=== PATIENT | female | born 1985 | race Caucasian/White ===

== ENCOUNTER → 2018-03-23 08:11 | Outpatient (CLI) | payer OTHER, SELFPAY | PROVIDERS: Family Provider Family Medicine; PCP Family Medicine; Visit Provider Nurse Practitioner Adult Health | DX: R13.10 Dysphagia, unspecified (principal) | CPT/HCPCS: 74220 ==

== ENCOUNTER 2024-08-02 18:22 | Emergency (ER) | payer OTHER, SELFPAY ==
[2024-08-02 18:23] VITALS: BP 142/87; PULSE 72; RESP 16; TEMP 37; O2SAT 100; BMI 32.9
[2024-08-02 20:33] VITALS: BP 93/72; PULSE 85; RESP 16; O2SAT 97
[2024-08-02 20:36] LABS: Absolute Lymphocyte Count 2.38 X10^3/uL (0.83-4.51); Absolute Neutrophil Count 13.6 X10^3/uL (2.0-7.7); Basophil# 0.03 X10^3/uL; Basophil% 0.2 % (0-1); Eosinophil# 0.16 X10^3/uL; Eosinophils% 0.9 % (0-5); Hematocrit 41.3 % (37-47); Lymphocyte # 2.38 X10^3/ul (0.83-4.51); Mean Corp Hgb Conc 33.9 g/dL (32-36); Mean Corpuscular Hgb 30.4 pg (27.0-32.0); Mean Corpuscular Volume 89.8 fL (81-99); Mean Platelet Vol. 11.4 fl (6.2-12.0); Monocyte# 0.69 X10^3/uL; Monocyte% 4.1 % (0-10); NRBC Flagged by Analyzer 0 % (0-5); Neutrophil # 13.63 X10^3/uL (2.7-7.7); Neutrophil % 80.4 % (47-70); Platelet Count 270 K/mm3 (150-450); RBC Distribution Width CV 12.4 % (11.6-14.6); RBC Distribution Width SD 40.9 fl (35.1-43.9)
[2024-08-02 20:46] LABS: Internal QC Validated? YES +Cl - CLEAR BKGD; Pregnancy, Serum, hCG Quali. NEGATIVE Negative
--- NOTE | 2024-08-02 21:03 | US_ITS ---
INDICATION: RUQ pain, nausea EXAMINATION: Ultrasound US Abdomen RUQ (limited) TECHNIQUE: River scale and color doppler imaging was performed of the right upper quadrant. COMPARISON: Prior study dated: 03/05/2008 FINDINGS: LIVER: The liver is normal in size, shape, and echogenicity. No focal hepatic lesion. No intrahepatic biliary ductal dilatation. There is no free fluid. GALLBLADDER AND BILIARY TREE: Normally distended gallbladder. No shadowing gallstone, pericholecystic fluid or gallbladder wall thickening. Small gallbladder wall polyp is seen measuring up to 0.4 cm. No specific follow-up recommended. The proximal common bile duct measures 0.4 cm, which is within normal limits for the patient''s age. Songraphic Brooks''s sign: Negative. PANCREAS: The pancreatic head is unremarkable. The body and tail are obscured by gas. RIGHT KIDNEY: The right kidney measures 10.4 cm. No hydronephrosis or nephrolithiasis. No renal mass. US/Gallbladder IMPRESSION: No acute sonographic abnormality is demonstrated in the right upper quadrant. Electronically Signed: Valentín Cramer MD at 22:58 EST Reading Location ID and State: [facility] Tel , Service support ,
--- NOTE | 2024-08-02 21:04 | ED.VIS.GI ---
HPI HPI - GI History of Present Illness Chief Complaint: Abd Pain Informant: patient and spouse/S.O. Narrative Narrative: Patient has been having 2-3 days of episodes of colicky right upper quadrant abdominal pain with nausea no vomiting. She had 1 bout of nonbloody diarrhea today no melena. No fevers or chills. She states the episodes of occurred within an hour or 2 of meals each time, the first day was Andrea Haji. She states he has a history of a polyp in her gallbladder that was found last year on an ultrasound, other than a hysterectomy and she has not had no other abdominal surgeries in the past. She has a history currently of bladder cancer that she is getting BCG for, she is on a break of it right now. She denies any acute urinary symptoms. When she had the colicky right upper quadrant pain it is not radiating into her back or shoulder or anywhere else. [facility] Medical History Gallbladder polyp Bladder cancer Home Medications ?Medication ?Instructions ?Recorded ?Last Taken ?Type atorvastatin 20 mg tablet 20 mg PO QHS 10/30/15 Unknown History cholecalciferol (vitamin D3) 25 1,000 unit PO DAILY 10/30/15 Unknown History mcg (1,000 unit) tablet (Vitamin D3) desogestrel 0.15 mg-ethinyl 1 ea PO DAILY 10/30/15 Unknown History estradiol 0.03 mg tablet (Juleber) pediatric multivit no.43 with iron 18 mg PO DAILY 10/30/15 Unknown History fumarate 18 mg iron chewable tablet (Flintstones Complete (iron)) naproxen 250 mg tablet 250 - 500 mg (1 - 2 x 250 mg) PO 11/03/15 Unknown Rx Q8H PRN PRN MILD PAIN ##30 oxycodone-acetaminophen 5 mg-325 2 tab PO Q4H PRN PRN 11/03/15 Unknown Rx mg tablet Moderate-Severe pain ##30 promethazine 25 mg tablet 12.5 mg (1/2 x 25 mg) PO Q6H PRN 11/03/15 Unknown Rx PRN Nausea ##30 dicyclomine 10 mg capsule 20 mg (2 x 10 mg) PO Q6H PRN PRN 08/03/24 Unknown Rx abdominal discomfort #20 CAPSULES ondansetron 8 mg disintegrating 8 mg PO Q8H PRN nausea and 08/03/24 Unknown Rx tablet vomiting #12 tabs pantoprazole 40 mg tablet,delayed 40 mg PO DAILY #14 tabs 08/03/24 Unknown Rx release Allergy/AdvReac Type Severity Reaction Status Date / Time cefac[facility] ([facility] AdvReac Upset Verified 08/02/24 18:23 Stomach Surgical History History of partial hysterectomy Social History Smoking Status: Never smoker ROS ROS ED Constitutional Constitutional ED: Denies chills or fever(s) Eyes Eyes: Denies change in vision or diplopia ENT ENT ED: Denies rhinorrhea or sore throat Cardiovascular Cardiovascular: Denies chest pain or palpitations Respiratory/Chest Respiratory/Chest: Denies cough or dyspnea Gastrointestinal Gastrointestinal: Reports abdominal pain, diarrhea and nausea; Denies hematochezia, melena or vomiting Genitourinary Genitourinary ED: Denies dysuria or hematuria Musculoskeletal Musculoskeletal: Denies back pain or neck pain Integumentary Denies abscess or rash Neurologic Neurologic: Denies headache(s), paresthesias or weakness Psychiatric Psychiatric: Denies anxiety or suicidal thoughts EXAM Physical Exam Const Vital Signs: 08/02/24 18:23 08/02/24 20:33 08/02/24 21:51 Temperature 98.6 F Temperature Source Temporal Pulse Rate 72 85 71 Respiratory Rate 16 16 14 Blood Pressure 142/87 H 93/72 90/53 L Blood Pressure Mean 105 79 65 Pulse Ox 100 97 96 Oxygen Delivery Method Room Air Room Air Room Air 08/02/24 23:00 Temperature Temperature Source Pulse Rate 72 Respiratory Rate 14 Blood Pressure 93/53 L Blood Pressure Mean 66 Pulse Ox 98 Oxygen Delivery Method Room Air Positive well nourished and well developed General Appearance ED: well developed and NAD HEENT Reports moist mucous membranes normocephalic and atraumatic Eyes PERRL and EOMs intact bilaterally Neck full ROM and supple Resp normal respiratory effort and clear to auscultation bilaterally Cardio regular rate, regular rhythm and no murmurs GI non-distended GI Narrative: Tender right upper quadrant, negative Brooks. Otherwise benign abdomen. Auscultation: normoactive bowel sounds Palpation: soft Back/Spine no CVA tenderness General Back: other FROM Extremity normal to inspection General Extremety ED: Negative for edema, pulses abnormal or tenderness General Extremity: Negative for edema or pulses abnormal Neuro oriented x3, CN's II-XII intact bilaterally and no sensory deficits noted Sensorium / Orientation: awake and alert Motor Exam: strength 5/5 throughout Skin no rashes or lesions noted and no wounds MDM MDM MDM Narrative Medical decision making narrative: Her symptoms are in the right place and of the right timing (an hour or so after meals) and context of potentially be biliary colic. Therefore labs initially obtained, nursing protocol did a not realized the patient had a prior hysterectomy, and a right upper quadrant ultrasound ordered. I reviewed the images and the report which I agree with, it is essentially normal except for small polyps the patient knew about. No evidence of acute cholecystitis. She does have a leukocytosis of 17, which is concerning but her liver enzymes and lipase are normal. Urine shows no infection. Given the leukocytosis I thought indicated to also obtain a CT to evaluate for other possible inflammatory issues in the right side of the abdomen, especially appendicitis although would be atypical if present. I reviewed those images and the report which I agree with, it is negative for anything acute. This includes lower lobe pneumonia which I do not see on the CT and the patient has no symptoms of. Given this I think reasonable to send her home as outpatient follow-up and treat her for possible intraluminal/intestinal etiologies. Given her a dose of pantoprazole in addition to a dose of morphine for pain prior to discharge and dicyclomine. I gave her Toradol earlier and it helped temporarily. Lab Data Attestation: I reviewed the patient's lab results. Labs: Laboratory Results - last 24 hr 08/02/24 08/02/24 08/02/24 20:30 21:35 23:25 WBC 17.0 H RBC 4.60 Hgb 14.0 Hct 41.3 MCV 89.8 MCH 30.4 MCHC 33.9 RDW Std Deviation 40.9 RDW Coeff of Sanjay 12.4 Plt Count 270 MPV 11.4 Immature Gran % (Auto) 0.400 Neut % (Auto) 80.4 H Lymph % (Auto) 14.0 L Hawkins % (Auto) 4.1 Eos % (Auto) 0.9 Baso % (Auto) 0.2 Absolute Neuts (auto) 13.6 H Absolute Lymphs (auto) 2.38 Nucleated RBC % 0 Sodium Cancelled 137 Potassium Cancelled 3.5 Chloride Cancelled 106 Carbon Dioxide Cancelled 25.0 Anion Gap Cancelled 6 BUN Cancelled 11 Creatinine Cancelled 0.62 Estim Creat Clear Calc Cancelled 133.49 Est GFR (MDRD) Af Amer Cancelled 138 Est GFR (MDRD) Non-Af Cancelled 114 BUN/Creatinine Ratio Cancelled 17.9 Glucose Cancelled 112 H Calcium Cancelled 9.3 Total Bilirubin Cancelled 0.40 AST Cancelled 16 ALT Cancelled 26 Alkaline Phosphatase Cancelled 80 Total Protein Cancelled 7.0 Albumin Cancelled 3.9 Globulin Cancelled 3.1 Albumin/Globulin Ratio Cancelled 1.3 Lipase 20 Serum , Qual NEGATIVE Urine Color Yellow Urine Clarity Clear Urine pH 6.0 Ur Specific [place] 1.015 Urine Protein Negative Urine Glucose (UA) Normal Urine Ketones Negative Urine Occult Blood Negative Urine Nitrite Negative Urine Bilirubin Negative Urine Urobilinogen Normal Ur Leukocyte Esterase Negative Urine RBC 0-5 SEEN Urine WBC 0-5 SEEN Ur Squamous Epith Cells 0-5 SEEN Urine Bacteria 0 SEEN Urine Mucus 0 SEEN Radiography Diagnostic Testing: Clinical Impression(s) from Imaging Studies Gallbladder Ultrasound 08/02/24 21:03 IMPRESSION: No acute sonographic abnormality is demonstrated in the right upper quadrant. Electronically Signed: Valentín Cramer MD at 22:58 EST Reading Location ID and State: [address] [place] [address] Tel , Service support , Abdomen/Pelvis CT 08/02/24 23:18 IMPRESSION: No acute finding in the abdomen or pelvis. No inflammatory changes. Electronically Signed: Valentín Cramer MD at 23:59 EST Reading Location ID and State: [facility] / [place] Tel , Service support , Discharge Plan Triage Chief Complaint: Abd Pain ED Provider: Yao Lopez Dx/Rx/DC Orders Clinical Impression: Right sided abdominal pain Instructions: Abdominal Pain Prescriptions: New pantoprazole 40 mg tablet,delayed release (DR/EC) 40 mg PO DAILY Qty: 14 0RF dicyclomine 10 mg capsule 20 mg PO Q6H PRN PRN (Reason: abdominal discomfort) Qty: 20 0RF ondansetron 8 mg tablet,disintegrating 8 mg PO Q8H PRN (Reason: nausea and vomiting) Qty: 12 0RF No Action desogestrel-ethinyl estradiol [Juleber] 1 EACH tablet 1 ea PO DAILY Patient Comments: control atorvastatin 20 MG tablet 20 mg PO QHS Patient Comments: cholesterol cholecalciferol (vitamin D3) [Vitamin D3] 1,000 UNIT tablet 1,000 unit PO DAILY Patient Comments: supplement pedi multivit 43-iron fumarate [Flintstones Complete (iron)] 18 MG tablet,chewable 18 mg PO DAILY Patient Comments: supplement naproxen 250 MG tablet 250 - 500 mg PO Q8H PRN PRN (Reason: MILD PAIN) Qty: 30 0RF Patient Comments: as needed for pain oxycodone-acetaminophen 1 TABLET tablet 2 tab PO Q4H PRN PRN (Reason: Moderate-Severe pain) Qty: 30 0RF Patient Comments: as needed for pain promethazine 25 MG tablet 12.5 mg PO Q6H PRN PRN (Reason: Nausea) Qty: 30 0RF Patient Comments: as needed for nausea Primary Care Provider: Tomas Crooks Referrals: Tomas Crooks MD [Primary Care Provider] - 3-5 Days if not improving Print Language: [place] Citizen Disposition Disposition: Home, Self Care Discharge Date/Time: 08/03/24 00:27
[2024-08-02] MEDS: Ketorolac 30 MG/ML Syringe IV (21:20)
[2024-08-02] MEDS: Ondansetron 4 MG/2 ML Vial IV (21:20)
[2024-08-02 21:51] VITALS: BP 90/53; PULSE 71; RESP 14; O2SAT 96
[2024-08-02 21:59] LABS: ALB/GLOB Ratio 1.3 RATIO (0.9-2.4); AST(SGOT) 16 U/L (15-37); Alanine Aminotransfer ALT/SGPT 26 U/L (13-56); Albumin, Serum 3.9 g/dL (3.2-5.0); Alkaline Phosphatase 80 U/L (45-117); Anion Gap 6 (5-15); BUN 11 mg/dL (7-18); BUN/Creat Ratio 17.9 RATIO (10-20); Calcium,Total 9.3 mg/dL (8.5-10.1); Chloride 106 mmol/L (98-107); Creatinine, Serum 0.62 mg/dL (0.55-1.02); EST Glomerular Filtration Rate 114 mL/min (>60); Est Glom Filt Rate - Afr Amer 138 mL/min (>60); Estimated Creatinine Clearance 133.49 ml/min; Globulin 3.1 g/dL (2.2-4.2); Glucose 112 mg/dL (74-106); Lipase 20 U/L (13-75); Potassium 3.5 mmol/L (3.5-5.1); Sodium Level 137 mmol/L (136-145)
[2024-08-02 23:00] VITALS: BP 93/53; PULSE 72; RESP 14; O2SAT 98
--- NOTE | 2024-08-02 23:18 | CT_ITS ---
STUDY: CT ABDOMEN AND PELVIS WITH CONTRAST REASON FOR EXAM: Female, 39 years old. right sided abd pain, leukocytosis RADIATION DOSAGE (If Supplied By Facility): CTDIvol = ( 14.66 ) mGy, DLP = ( 827.78 ) mGycm TECHNIQUE: IV 100mL Isovue-300 was administered. Transaxial images were obtained from the dome of the diaphragm to the symphysis pubis in the portal venous phase. Multiplanar coronal and sagittal images were reformatted. Individualized Dose Optimization Techniques Were Used For This CT. COMPARISON: Prior study dated: Ultrasound from today FINDINGS: LOWER CHEST: Lung bases are clear. No cardiomegaly or pericardial effusion. LIVER: The liver is normal in size, shape, and attenuation. No focal mass. GALLBLADDER AND BILIARY TREE: The gallbladder is normally distended. No gallstones. No gallbladder wall thickening or edema. No pericholecystic fluid. No intra- or extrahepatic biliary ductal dilation. PANCREAS: No focal cystic or solid mass. SPLEEN: Normal size without focal cystic or solid mass. ADRENAL GLANDS: No nodules. KIDNEYS AND URETERS: Normal renal size and position. No hydronephrosis or nephrolithiasis. PERITONEUM: No ascites or free air. No other fluid collection. BOWEL: The stomach is unremarkable. Normal caliber small bowel. There is no obstruction. No colonic wall thickening or inflammation. No evidence of acute appendicitis. LYMPH NODES: No enlarged mesenteric or retroperitoneal lymph nodes. VESSELS: The aorta is normal in caliber with mild atherosclerotic calcification. URINARY BLADDER: Unremarkable. REPRODUCTIVE ORGANS: No pelvic masses. ABDOMINAL WALL: No discrete abdominal or pelvic wall hernia. BONES: No lytic or blastic abnormality. CT/Abdomen/Pelvis W IV Cont ONLY IMPRESSION: No acute finding in the abdomen or pelvis. No inflammatory changes. Electronically Signed: Valentín Cramer MD at 23:59 EST ,
[2024-08-02 23:35] LABS: Bacteria 0 SEEN /hpf (None Seen); Mucous, Urine 0 SEEN /hpf (<or=2+)
[2024-08-02 23:37] LABS: Color, Urine Yellow (Yellow); Glucose, Dipstick Normal (Normal); Ketone-Dipstick Negative (Negative); Leukocyte Esterase-Dipstick Negative /ul (Negative); Nitrite-Dipstick Negative (Negative); Occult Blood-Urine Negative /ul (Negative); Protein-Dipstick Negative (Negative); Specific Gravity, Urine 1.015 (1.002-1.030); Urine Bilirubin Dipstick Negative (Negative); Urine Clarity Clear (Clear); Urine Urobilinogen Normal (Normal)
[2024-08-03] MEDS: Dicyclomine 10 MG Capsule 20 MG PO (00:15)
[2024-08-03] MEDS: Morphine 4 MG/ML Syringe IV (00:15)
[2024-08-03] MEDS: Pantoprazole Sodium 40 MG Tablet PO (00:15)
[2024-08-03 00:18] LABS: Red Blood Cells-Urine 0-5 SEEN /hpf (0-5); White Blood Cells 0-5 SEEN /hpf (0-5)
[2024-08-03 00:19] LABS: Squamous Epithelial Cells - UA 0-5 SEEN /hpf (5-10)
[2024-08-03 00:21] VITALS: BP 113/71; PULSE 62; RESP 14; TEMP 36.6; O2SAT 98
== END 2024-08-03 00:27 | disposition home or self-care (01) ==
PROVIDERS: Emergency Provider Emergency Medicine; PCP Family Medicine; Visit Provider Emergency Medicine
DX: R10.11 Right upper quadrant pain (principal)
CPT/HCPCS: 74177; 76705; 80053; 81001; 83690; 84703; 85025; 96374; 96375; 99284; Q9967; A4216; J2405

== ENCOUNTER → 2024-09-06 | Outpatient (CLI) | payer OTHER, SELFPAY ==
[2024-09-07 16:07] LABS: Endomysial Antibody IgA Negative (Negative); Immunoglobulin A 101 mg/dL (87-352); t-Transglutaminase IgA <2 U/mL (0-3)
[2024-09-08 18:07] LABS: Beef <0.10 kU/L (Class 0); Chocolate <0.10 kU/L (Class 0); Codfish <0.10 kU/L (Class 0); Corn <0.10 kU/L (Class 0); Egg, Whole <0.10 kU/L (Class 0); Milk (Cow) <0.10 kU/L (Class 0); Mussels <0.10 kU/L (Class 0); Peanut 0.13 kU/L (Class 0/I); Pork <0.10 kU/L (Class 0); Salmon <0.10 kU/L (Class 0); Shrimp <0.10 kU/L (Class 0); Soybean <0.10 kU/L (Class 0); Tuna <0.10 kU/L (Class 0); Wheat <0.10 kU/L (Class 0)
== END | disposition home or self-care (01) ==
PROVIDERS: PCP Family Medicine; Referring Provider Student in an Organized Health Care Education/Training Program; Visit Provider Student in an Organized Health Care Education/Training Program
DX: R10.9 Unspecified abdominal pain (principal)
CPT/HCPCS: 36415; 82784; 83516; 86003; 86005; 86255

== ENCOUNTER → 2024-09-27 | Outpatient (CLI) | payer OTHER, SELFPAY ==
[2024-09-28 17:07] LABS: Deamidated Gliadin IgA 19 units (0-19); Deamidated Gliadin IgG 3 units (0-19); Endomysial Antibody IgA Negative (Negative); Immunoglobulin A 99 mg/dL (87-352); t-Transglutaminase IgA <2 U/mL (0-3)
== END | disposition home or self-care (01) ==
LOC: MTLAB 07:35
PROVIDERS: PCP Family Medicine; Referring Provider Student in an Organized Health Care Education/Training Program; Visit Provider Student in an Organized Health Care Education/Training Program
DX: R10.9 Unspecified abdominal pain (principal)
CPT/HCPCS: 36415; 82784; 83516; 86255